=== PATIENT | male | born 1955 | race Caucasian/White ===

== ENCOUNTER → 2017-05-10 | Outpatient (CLI) | payer BC ==
[~2017-05-10] MED LIST: ATR80PT PO; CYCL1DRO6 OP; DIC250 PO; FLU30SYR8 IM ONLY; FLU45SYR25 IM ONLY; FLU60SYR30 IM ONLY; FLUT16SP19 NS; IBUP-56 PO; LISI-374 PO; LISI20TA29 PO; METF500T4 PO; MULT-1097 PO; MULT-1335 PO; OXYC1TAB54 PO; TYLENOL ALLERGY
== END ==
LOC: LAB 12:09
PROVIDERS: ATTEND Emergency Medicine
DX: E11.9 Type 2 diabetes mellitus without complications (principal); R74.8 Abnormal levels of other serum enzymes
CPT/HCPCS: 36415; 82103; 82390; 82550; 82784; 83036; 83516; 84165

== ENCOUNTER → 2018-01-10 | Outpatient (CLI) | payer BC ==
[2018-01-10 11:28] LABS: PLATELET COUNT, AUTOMATED 245 K/uL (150-450)
[2018-01-10 11:45] LABS: LDL CHOLESTEROL 50 mg/dl
== END ==
LOC: LAB 08:00
PROVIDERS: ATTEND Emergency Medicine
DX: E11.9 Type 2 diabetes mellitus without complications (principal)
CPT/HCPCS: 36415; 82040; 82247; 82310; 82374; 82435; 82465; 82565; 82947; 83036; 83718; 84075; 84132; 84155; 84295; 84450; 84460; 84478; 84520; 85025